=== PATIENT | female | born 1975 ===

== ENCOUNTER 2020-06-09 10:35 | Inpatient (IN) | payer OTHER ==
[~2020-06-09] VITALS: Ht 157.5 cm; Wt 78.9 kg
[2020-06-09] MEDS ORDERED: XANAX XR0.5 MG PO (13:46)
== END 2020-06-12 10:02 | disposition home or self-care (01) | DRG 331 ==
LOC: ER 10:35 → SURH 13:01
PROVIDERS: ADMIT Surgery; ATTEND Surgery
PROC: 0WQF0ZZ Repair Abdominal Wall, Open Approach (ICD-10-PCS; 2020-06-09)
PROC: 3E0F7SF Introduction of Other Gas into Respiratory Tract, Via Natural or Artificial Opening (ICD-10-PCS; 2020-06-09)
PROC: BW21ZZZ Computerized Tomography (CT Scan) of Abdomen and Pelvis (ICD-10-PCS; 2020-06-09)
PROC: 0DB80ZZ Excision of Small Intestine, Open Approach (ICD-10-PCS; principal; 2020-06-09 14:00)
DX: K43.0 Incisional hernia with obstruction, without gangrene (principal); F32.89 Other specified depressive episodes; Z20.828 Contact with and (suspected) exposure to other viral communicable diseases; Z98.84 Bariatric surgery status